=== PATIENT | male | born 2005 | race Caucasian/White ===

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

== ENCOUNTER 2024-01-27 08:44 | Emergency (ER) | payer OTHER ==
[2024-01-27] MEDS: KETOROLAC 15 MG/ML 1 ML VIAL IVP STA (10:26)
[2024-01-27] MEDS: FAMOTIDINE 20 MG/2 ML VIAL IV STA (10:27)
[2024-01-27 10:39] LABS: Basophils % (A) 1 %; Eosinophils # (A) 0.1 k/uL (0-0.7); Eosinophils % (A) 1 %; HCT 46.2 % (39.0-53.0); HGB 15.2 gm/dL (13.0-17.5); Lymphocytes # (A) 1.8 k/uL (1.0-4.8); Lymphocytes % (A) 32 %; MCH 30.7 pg (25.0-35.0); MCHC 32.9 g/dL (31.0-37.0); MCV 93.2 fL (80.0-100.0); Mean Platelet Volume 9.1; Monocytes # (A) 0.4 k/uL (0-1.0); Monocytes % (A) 7 %; Neutrophils # (A) 3.3 k/uL (1.3-7.7); Neutrophils % (A) 57 %; Platelet Count 204 k/uL (150-450); RBC 4.96 m/uL (4.30-5.90); RDW 13.2 % (11.5-15.5); WBC 5.7 k/uL (4.0-11.0)
--- NOTE | 2024-01-27 10:44 | ED ---
Chest Pain HPI - General Chief Complaint: Chest Pain Stated Complaint: chest pain Time Seen by Provider: 01/27/24 09:56 Source: patient, RN notes reviewed Mode of arrival: ambulatory Limitations: no limitations - History of Present Illness Initial Comments: This is a 18-year-old male who presents to the emergency department for chest pain. Reports intermittent left-sided chest pain for the last couple of months. Describes this as sharp. Denies any radiation of pain or shortness of breath. Also denies any abdominal pain or nausea/vomiting. He has no personal or family history of cardiac problems. He has not tried taking any medications when symptoms occur. MD Complaint: chest pain - Related Data Previous Rx's Medication Instructions Recorded Amoxicillin/Potassium Clav 1 tab PO Q12HR #20 tab 01/29/17 [Augmentin 875-125 Tablet] Ibuprofen [Motrin] 600 mg PO Q8HR PRN #30 tab 01/27/24 Pantoprazole [Protonix] 40 mg PO DAILY 14 Days #14 tab 01/27/24 Allergies Allergy/AdvReac Type Severity Reaction Status Date / Time No Known Allergies Allergy Verified 01/27/24 09:04 Review of Systems ROS Statement: Those systems with pertinent positive or pertinent negative responses have been documented in the HPI. ROS Other: All systems not noted in ROS Statement are negative. Past Medical History Past Medical History: No Reported History History of Any Multi-Drug Resistant Organisms: None Reported Past Surgical History: No Surgical Hx Reported Past Psychological History: No Psychological Hx Reported Smoking Status: Vaper Past Alcohol Use History: None Reported Past Drug Use History: Marijuana General Exam Limitations: no limitations General appearance: alert, in no apparent distress Head exam: Present: atraumatic, normocephalic, normal inspection Respiratory exam: Present: normal lung sounds bilaterally. Absent: respiratory distress, wheezes, rales, rhonchi, stridor Cardiovascular Exam: Present: regular rate, normal rhythm, normal heart sounds. Absent: systolic murmur, diastolic murmur, rubs, gallop, clicks Neurological exam: Present: alert, oriented X3, CN II-XII intact Psychiatric exam: Present: normal affect, normal mood Skin exam: Present: warm, dry, intact, normal color. Absent: rash Course Vital Signs 01/27/24 01/27/24 09:00 11:16 Temperature 98.3 F 99.1 F Pulse Rate 58 L 54 L Respiratory 18 17 Rate Blood Pressure 151/79 114/72 O2 Sat by Pulse 99 99 Oximetry Chest Pain MDM - MDM This is a 18 year old male who presents to the emergency department for chest pain. Was pt. sent in by a medical professional or institution? @ -No Did you speak to anyone other than the patient for history? @ -No Did you review nursing and triage notes? @ -Yes, and I agree, it is accurate with regards to the patient's symptoms. Were old charts reviewed? @ -No Differential Diagnosis? @ -Differential Chest Pain: Stable Angina, Unstable Angina, STEMI, NSTEMI Aortic Dissection, Pneumothorax, Musculoskeletal, Esophageal Spasm GERD, Cholecystitis, Pancreatitis, Zoster, this is not meant to be an all-inclusive list. EKG interpreted by me (3pts min.)? @ -EKG interpreted by me demonstrating the following: Sinus bradycardia. Ventricular rate 51 bpm, VA interval 126 ms, QRS duration 101 ms, QTc 368 ms. X-rays interpreted by me (1pt min.)? @ -Chest x-ray obtained, my interpretation identifies no localized consolidations or infiltrates. CT interpreted by me (1pt min.)? @ -Not obtained U/S interpreted by me (1pt. min.)? @ -Not obtained What testing was considered but not performed? (CT, X-rays, U/S, labs)? Why? @ -None What meds were considered but not given? Why? @ -None Did you discuss the management of the patient with other professionals? @ -No Did you reconcile home meds? @ -No Was smoking cessation discussed for >3mins.? @ -No Was critical care preformed (if so, how long)? @ -No Were there social determinants of health that impacted care today? How? (Homelessness, low income, unemployed, alcoholism, drug addiction, transportation, low edu. Level, literacy, decrease access to med. care, group home, rehab)? @ -No Was there de-escalation of care discussed even if they declined? (Discuss DNR or withdrawal of care, Hospice)? @ -No What co-morbidities impacted this encounter? (DM, HTN, Smoking, COPD, CAD, Cancer, CVA, Hep., AIDS, mental health diagnosis, sleep apnea, morbid obesity)? @ -None Was patient admitted / discharged? @ -Discharged. Lab work obtained and found to be unremarkable, including a negative troponin. Chest x-ray reveals no acute process. Patient's heart score is 0. Discussed that symptoms may be inflammatory in nature or related to esophageal reflux. He was given a prescription for pantoprazole and ibuprofen with dosing instructions reviewed to see if that offers any improvement to his symptoms. Otherwise advised follow-up with his primary care provider. Undiagnosed new problem with uncertain prognosis? @ -None Drug Therapy requiring intensive monitoring for toxicity (Heparin, Nitro, Insulin, Cardizem)? @ -None Were any procedures done? @ -None Diagnosis/symptom? @ -Chest pain Acute, or Chronic, or Acute on Chronic? @ -Chronic Uncomplicated (without systemic symptoms) or Complicated (systemic symptoms)? @ -Uncomplicated Side effects of treatment? @ -None Exacerbation, Progression, or Severe Exacerbation] @ -Stable Poses a threat to life or bodily function? @ -No Return precautions reviewed in depth, the patient is instructed to return to the emergency department with any new, worsening, or concerning symptoms. Patient verbalized understanding. This case was discussed in detail with the attending ED physician, Dr. Rivera. Presentation, findings, and treatment plan discussed in detail as well. Disposition Clinical Impression: Atypical chest pain Disposition: HOME SELF-CARE Instructions (If sedation given, give patient instructions): Costochondritis (ED), Noncardiac Chest Pain (ED), Chest Wall Pain (ED) Additional Instructions: Return to the emergency department with any new, worsening, or concerning sy mptoms. Try taking the ibuprofen 3 times daily for the next week to see if that helps with your symptoms. Also try taking the pantoprazole daily for 2 weeks. Try to take this 30 to 60 minutes before eating or taking other medication for the best effect. Follow up with your primary care provider in 1-2 days. Prescriptions: Ibuprofen [Motrin] 600 mg PO Q8HR PRN #30 tab PRN Reason: Pain Pantoprazole [Protonix] 40 mg PO DAILY 14 Days #14 tab Is patient prescribed a controlled substance at d/c from ED?: No Referrals: None,Stated [Primary Care Provider] - 1-2 days Forms: Area PCPs
[2024-01-27 10:49] LABS: Partial Thromboplastin Time 25.2 sec (22.0-30.0); Prothrombin Time 10.7 sec (10.0-12.5)
[2024-01-27 10:54] LABS: ALT 18 U/L (4-49); AST 24 U/L (17-59); African American GFR (CKD) >90 (>60 ml/min/1.73 sqM); Albumin 4.5 g/dL (3.5-5.0); Alkaline Phosphatase 73 U/L (38-126); Amylase 67 U/L (30-110); Anion Gap 6 mmol/L; Blood Urea Nitrogen 14 mg/dL (9-20); Calcium 9.9 mg/dL (8.4-10.2); Carbon Dioxide 28 mmol/L (22-30); Chloride 106 mmol/L (98-107); Glucose 98 mg/dL (74-99); Lipase 25 U/L (23-300); Magnesium 1.9 mg/dL (1.6-2.3); Non-African American GFR(CKD) >90 (>60 ml/min/1.73 sqM); Potassium 4.4 mmol/L (3.5-5.1); Sodium 140 mmol/L (137-145); Total Bilirubin 0.5 mg/dL (0.2-1.3)
--- NOTE | 2024-01-27 11:09 | XR ---
EXAMINATION TYPE: XR chest 2V DATE OF EXAM: 01/27/2024 10:25 AM CLINICAL INDICATION:Male, 18 years old with history of Chest Pain; [facility] COMPARISON: None TECHNIQUE: XR chest 2V Frontal and lateral views of the chest. FINDINGS: Lungs/Pleura: There is no evidence of pleural effusion, focal consolidation, or pneumothorax. Pulmonary vascularity: Unremarkable. Heart/mediastinum: Cardiomediastinal silhouette is unremarkable. Musculoskeletal: No acute osseous pathology. IMPRESSION: No acute cardiopulmonary disease/process.
[2024-01-27 11:35] VITALS: BP 114/72; PULSE 54; RESP 17; TEMP 99.1
== END 2024-01-27 11:54 | disposition home or self-care (01) ==
LOC: EC 08:44
DX: R07.89 Other chest pain (principal); R00.1 Bradycardia, unspecified; F17.290 Nicotine dependence, other tobacco product, uncomplicated; F12.90 Cannabis use, unspecified, uncomplicated
CPT/HCPCS: 36415; 93005; 80053; 82150; 83690; 83735; 84484; 85025; 85610; 85730; 71046; 99285; 96374; 96375; J3490; J1885